=== PATIENT | male | born 1985 | race Caucasian/White ===

== ENCOUNTER 2019-05-20 17:56 | Emergency (ER) | payer MEDICAID, OTHER, SELFPAY ==
[~2019-05-20] VITALS: Ht 177.8 cm; Wt 156.8 kg
[~2019-05-20 17:56] MED LIST: LEVO125 PO; METF-960 PO
[2019-05-20] MEDS ORDERED: LISI-660 PO (19:04)
[2019-05-20 19:05] LABS: GLUCOSE,POINT OF CARE 320 MG/DL (70-110)
[2019-05-20] MEDS ORDERED: RABIES IMMUNE GLOBULIN/PF 300 UNITS/ML 5 ML VIAL IM ONE (21:00)
[2019-05-20] MEDS ORDERED: RABIES VAC,PF CHICK-EMB CELL 2.5 UNITS/ML SYRINGE IM ONE (21:00)
[2019-05-20 21:06] VITALS: BP 140/72
[2019-05-20] MEDS: KETOROLAC TROMETHAMINE 60 MG/2 ML VIAL IM ONE ×2 (21:17→21:23)
== END 2019-05-20 21:54 | disposition home or self-care (01) ==
LOC: EMS 17:58
DX: M25.461 Effusion, right knee (principal); E11.9 Type 2 diabetes mellitus without complications; E03.9 Hypothyroidism, unspecified; Z79.899 Other long term (current) drug therapy
CPT/HCPCS: 73562; 82962; 96372; 99283; J1885; 90375; 90675